=== PATIENT | female | born 1970 | race Caucasian/White ===

== ENCOUNTER 2016-11-15 10:27 | Outpatient (CLI) | payer OTHER ==
--- NOTE | 2016-11-15 12:21 | DIAGNOSTIC IMAGING REPORT ---
PROCEDURE: MR UPPER EXTREMITY W/O CONT-RT INDICATION: RT SHOULDER ROTATOR CUFF TEAR TECHNIQUE: PD and FAT-SAT PD, axial, and coronal-oblique images. PD and STIR sagittal-oblique images. COMPARISON: Right shoulder x-ray 11/01/2016 FINDINGS: Mild AC joint degenerative changes and type 2 acromion resulting in mild impingement. There is thickening and increased T2 signal of the rotator cuff consistent with tendinosis but no evidence of a tear. Normal labrum. Normal bicipital tendon and glenohumeral ligaments. Shoulder musculature is unremarkable. No evidence of a bursitis. Bones are unremarkable. IMPRESSION: 1. Impingement with rotator cuff tendinosis
== END 2016-11-15 23:00 ==
LOC: MRI SRH 10:27
DX: M75.41 Impingement syndrome of right shoulder (principal)